=== PATIENT | male | born 1975 | race Caucasian/White ===

== ENCOUNTER 2020-09-07 08:52 | Emergency (ER) | payer OTHER, SELFPAY ==
[2020-09-07] VITALS (9 sets, daily range): BP systolic 118–158; BP diastolic 58–85; PULSE 51–80; RESP 16–24; TEMP 36.1–36.7; O2SAT 96–100; BMI 32.0
--- NOTE | 2020-09-07 08:58 | RAD_ITS ---
STUDY: X-RAY - RIGHT RADIUS AND ULNA REASON FOR EXAM: Right forearm pain, right forearm injury. TECHNIQUE: 2 view(s) of the forearm. COMPARISON: None. FINDINGS: There is no demonstrated soft tissue swelling. Normal visualized radius. Normal visualized ulna. RAD/Forearm 2 Views IMPRESSION: Normal x-ray examination of the right radius and ulna. Electronically Signed: Gregg Guzman MD at 10:15 EDT Tel , Service support ,
--- NOTE | 2020-09-07 08:58 | RAD_ITS ---
STUDY: X-RAY - RIGHT ELBOW REASON FOR EXAM: Male, 45 years old. Injury/Pain , open wound of posterior elbow TECHNIQUE: 3 view(s) of the elbow. COMPARISON: None. FINDINGS: Normal visualized humerus, radius and ulna. Normal radiocapitellar and ulnotrochlear articulations. Soft tissue injury of the posterior distal upper arm/elbow. RAD/Elbow min 3 Views IMPRESSION: Soft tissue injury posteriorly without demonstrated fracture. Electronically Signed: Misael Joyce MD ([facility]) at 9:53 EDT , Service support ,
--- NOTE | 2020-09-07 08:58 | RAD_ITS ---
STUDY: X-RAY - RIGHT HAND REASON FOR EXAM: Right hand pain, limited range of motion in fingers, right hand injury. TECHNIQUE: 3 view(s) of the hand. COMPARISON: None. FINDINGS: Normal radiocarpal articulation. Normal distal radioulnar joint. Normal visualized carpal bones. Normal carpal articulations Normal carpometacarpal articulation of the thumb. Normal second through fifth carpometacarpal joints. Normal metacarpi. Normal metacarpophalangeal joint of the thumb. Normal interphalangeal joint of the thumb. Normal proximal and distal phalanges of the thumb. Normal metacarpophalangeal joints of the second through fifth fingers. Normal proximal and distal interphalangeal joints of the second through fifth fingers. There is a small exostosis of the ulnar aspect of the distal diaphysis of the fifth proximal phalanx. Otherwise, unremarkable phalanges of the second through fifth fingers. The soft tissue structures are unremarkable. RAD/Hand Min 3 Views IMPRESSION: Small exostosis of the fifth proximal phalanx. No demonstrated fracture. Electronically Signed: Gregg Guzman MD at 10:10 EDT Tel , Service support ,
--- NOTE | 2020-09-07 08:59 | EDS_ITS ---
HPI History of Present Illness Chief Complaint: Upper Extremity Injury Informant: patient Occured/Mechanism Mechanism/Context: Yes work related Narrative Narrative: Patient is a 45-year-old male who denies any past medical history presenting with injury to his right elbow and hand. Patient was attempting to use a hammer to get grease off of the conveyor belt at work when the hammer got sucked up in his hand along with it into the conveyor belt. He states his hand and arm was stuck between a conveyor belt and the roller mechanism. He complained of significant pain at his elbow as well as tingling in his first 3 fingers. Patient believes his last tetanus shot was 4 to 5 years ago. He complained of significant associated pain. He denies any other injuries or complaints at this time. Patient is right-hand dominant. Tetanus Immunization: <5 years [facility] Home Medications NK 09/07/20 [History Last Taken Unknown] Allergy/AdvReac Type Severity Reaction Status Date / Time No Known Allergies Allergy Verified 09/07/20 09:08 Social History Smoking Status: Former smoker [facility] ED Constitutional Constitutional ED: Reports frequent falls; Denies fever(s) Eyes Eyes: Denies change in vision or eye pain ENT ENT ED: Denies dental pain, mouth lesions or nasal trauma Cardiovascular Cardiovascular: Denies chest pain or syncope Respiratory/Chest Respiratory/Chest: Denies cough or dyspnea Gastrointestinal Gastrointestinal: Denies abdominal pain or nausea Genitourinary Genitourinary ED: Denies dysuria or hematuria Musculoskeletal Musculoskeletal: Reports other Details: right elbow and hand pain ; Denies back pain Integumentary Reports other Details: wound to right elbow, abrasions to right forearm and fingers Neurologic Neurologic: Denies headache(s), paresthesias or weakness Psychiatric Psychiatric: Denies anxiety or depression Hematologic/Lymphatic Hematologic/Lymphatic: Denies easy bleeding or easy bruising EXAM Physical Exam Const Vital Signs: 09/07/20 08:53 Temperature 97.0 F L Temperature Source Temporal Pulse Rate 55 L Respiratory Rate 24 H Blood Pressure 148/85 H Blood Pressure Mean 106 Pulse Ox 99 Oxygen Delivery Method Room Air Positive well nourished and well developed General Appearance ED: well developed HEENT Reports head/scalp atraumatic and hearing grossly normal bilaterally normocephalic and atraumatic; Negative for Motta's sign or raccoon eyes Nose: no nasal discharge Mouth ED: Yes other Mouth: other Other Details: No Malocclusion Eyes PERRL Neck full ROM Thyroid: Negative for tender Chest Wall inspection of chest normal and palpation of chest normal Chest: Negative for crepitus Resp normal respiratory effort, no retractions and clear to auscultation bilaterally Cardio regular rate and regular rhythm Jugular Venous Distention: Negative for JVD Peripheral Pulses: pulses 2+ throughout GI non-tender and non-distended Palpation: soft; Negative for guarding or rebound tenderness present Extremity Extremity Narrative: Swelling and tenderness with slight deformity of the right elbow. Tenderness is mostly over the radial head. There is swelling of that area that is very tender to palpation. Patient has significant pain with pronation as well as flexion and extension. Normal range of motion of right wrist. Normal right shoulder. Patient has normal range of motion and movement with intrinsic and extrinsic hand muscles. Neuro oriented x3 and moves all extremities Neuro Narrative: Subjective paresthesias of the right first through third fingers diffusely. Sensation is intact with light touch however. Sensorium / Orientation: alert Motor Exam: strength 5/5 throughout Psych mental status grossly normal Skin Skin Narrative: 3 cm x 4 cm open wound of the right posterior distal forearm, no active bleeding. The wound edges a very frayed. There appears to be friction hayes along the dorsal aspect of the forearm as well as abrasions over the second and third right fingers. No active bleeding. Skin is quite dirty and contaminated with grease. MDM MDM MDM Narrative Medical decision making narrative: Patient valuated for crush injury to his right forearm. He is right-hand dominant. Patient has an avulsion injury through the subcu tissue of the posterior right distal arm with associated friction burn of the right forearm. Patient does not show any acute fracture on x-ray. No posterior fat pad sign. Significant pain tenderness of the proximal forearm compartment on the radial aspect. He has paresthesias of the first through third fingers. I am concerned that he could develop compartment syndrome and needs evaluation by orthopedics. Patient requires multiple doses of pain medication in the ER for pain control. Wound is clean and irrigated. Wet-to-dry dressing is applied. Spoke with orthopedic on-call here who states that we do not have the capabilities to manage compartment syndrome as we do not have the correct instruments and they recommend transfer. Discussed with [facility] who also discussed with Dr. Lua, Ortho trauma and patient will be evaluated there. Patient will go by private vehicle with his . He is instructed to go straight to the emergency room. He is counseled on the concerns of a missed compartment syndrome and associated risk. Patient is given oral oxycodone prior to transfer. On discharge patient has significant tenderness of the proximal forearm with asymmetric edema however he is still neuro vastly intact. Discharge Plan Triage Chief Complaint: Upper Extremity Injury ED Provider: Mary Jo Vera Dx/Rx/DC Orders Prescriptions: No Action NK RF: 0 Primary Care Provider: Care Physician,No Primary
[2020-09-07] MEDS: fentaNYL 100 MCG/2 ML Ampul 50 MCG IM (09:04)
--- NOTE | 2020-09-07 09:23 | ED.RN ---
THIS NURSE SPOKE WITH CHANELL AT [facility] [phone], NO DRUG TESTING REQUIRED
[2020-09-07] MEDS: Ondansetron 4 MG/2 ML Vial IV (09:40)
[2020-09-07] MEDS: HYDROmorphone 0.5 MG/0.5 ML SYRINGE IV ×2 (09:41→11:31)
[2020-09-07] MEDS: Lidocaine 1% /Epi 1:100 (20ml) 20 ML Vial INFILT (12:32)
[2020-09-07] MEDS: oxyCODONE 5 MG Tablet PO (14:37)
--- NOTE | 2020-09-07 15:09 | ED.RN ---
CONVERSATION WITH DR HOLDEN. DECISION MADE TO LEAVE IV IN. AREA WRAPPED. WET TO DRY DRESSING PLACED TO RT ELBOW AREA. SLING IN PLACE
== END 2020-09-07 15:39 | disposition short-term general hospital (02) ==
PROVIDERS: Emergency Provider Emergency Medicine
DX: S69.91XA Unspecified injury of right wrist, hand and finger(s), initial encounter (principal); S59.901A Unspecified injury of right elbow, initial encounter; Z87.891 Personal history of nicotine dependence; X58.XXXA Exposure to other specified factors, initial encounter
CPT/HCPCS: 73080; 73090; 73130; 96372; 96374; 96375; 96376; 99285; A4216; J2405

== ENCOUNTER → 2024-10-28 | Outpatient (CLI) | payer OTHER, SELFPAY | END | disposition home or self-care (01) | LOC: LABSPEC 17:32 | PROVIDERS: Referring Provider Otolaryngology; Visit Provider Otolaryngology | DX: J32.9 Chronic sinusitis, unspecified (principal) | CPT/HCPCS: 87070; 87205 ==

== ENCOUNTER → 2024-11-14 | Outpatient (CLI) | payer OTHER, SELFPAY ==
--- NOTE | 2024-11-14 06:23 | CT_ITS ---
PROCEDURE: SINUS/FACIAL BONE 11/14/2024 REASON FOR EXAM: OTHER CHRONIC SINUSITIS TECHNIQUE: SINUS/FACIAL BONE Coronal and Sagittal reconstruction series were provided. One or more dose reduction techniques were used (e.g., Automated exposure control, adjustment of the mA and/or kV according to patient size, use of iterative reconstruction technique). RADIATION DOSE SUMMARY: CTDlvol: 33.06 mGy DLP: 817.32 mGycm COMPARISON: None FINDINGS: Frontal: Opacification of the left frontal sinus. Ethmoid: Opacification of the ethmoid sinuses more pronounced on the left side with the resorption of the bony septations. Sphenoid: Minimal mucosal thickening along the medial wall of the right sphenoid sinus. Maxillary: Opacification of the left maxillary sinus and mucosal thickening of the right maxillary sinus. Turbinates: Soft tissue density within the nasal fossa more pronounced on the left side. There is obliteration of the left ostiomeatal complex due to soft tissue proliferation. Nasal polyposis should be ruled out. Nasal Septum: Left deviation. Mastoids/Middle Ears: Clear Pansinusitis. Findings suggestive of nasal polyposis. Reading Location: [id number]
--- OUTSIDE RECORDS SUMMARY | 2024-11-14 06:25 | XMS RPT_ITS | CCD ---
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 Name Role Phone JEANETH FRANCISCO () Unavailable Unav ailable JEANETH FRANCISCO) Unavailable Unav ailable JEANETH FRANCISCO) Unavailable Unav ailable JEANETH FRANCISCO) Unavailable Unav ailable KORPI Admitting Unavailable KORPI Attending Unavailable KORPI Primary Care Unavailable CINDA MIDDLETON SENIOR GL ACCOUNTANT Attending Unavailable CINDA MIDDLETON SENIOR GL ACCOUNTANT Primary Care Unavailable CINDA MIDDLETON SENIOR GL ACCOUNTANT Admitting Unavailable Care Physician, No Primary Primary Care Provider Unavailable Care Physician, No Primary Referring Provider Un available Mal Lee Attending Provider [phone] Care Physician, No Primary Referring Unava ilable Care Physician, No Primary Primary Care Unava ilable Mal Lee Attending Unavailable Care Physician, No Primary Primary Care Unava ilable Jeaneth Love Referring Unavaildorinda e Jeaneth Love Attending Unavailabl e Care Physician, No Primary Primary Care Unava ilable Jeaneth Love Referring UnavailJeaneth Marin Attending Unavailabl e Medications Completed/Discontinued Medications Medication Drug Class(es) Dates Sig (Normalized) Sig (Original) azithromycin 250 mg oral tablet (1 source) Macrolide Antimicrobial Start: 08-20-2023 End: 08-10-2024 Azithromycin 250 mg tablet Discontinued 0 PO .COMPLEX August 20, 2023 12:00am August 10, 2024 3:16pm For 250 mg dose pack: take 500 mg today (day 1), then 250 mg for 4 days (days 2-5) PO Problems Active Problems Problem Classification Problem Date Documented Date Episodic/Chronic Administrative/social admission (1 source) Administrative reason for encounter; Translations: [Encounter for other administrative examinations] 04-01-2023 Episodic Cardiac dysrhythmias (1 source) Palpitations; Translations: [Palpitations] Onset: 02-23-2018 Episodic Crushing injury or internal injury (1 source) Crushing injury of right forearm, subsequent encounter; Translations: [Crushing injury of right forearm, subsequent encounter] Onset: 10-26-2020 Episodic Genitourinary symptoms and ill-defined conditions (1 source) Proteinuria, unspecified; Translations: [Proteinuria, unspecified] Onset: 03-05-2018 Episodic Open wounds of extremities (3 sources) Laceration without foreign body of right upper arm, subsequent encounter; Translations: [Laceration without foreign body of right upper arm, subsequent encounter] Onset: 10-26-2020 Episodic Open wounds of head; neck; and trunk (1 source) Laceration of chin; Translations: [Laceration without foreign body of other part of head, initial encounter] 08-20-2023 Episodic Other nutritional; endocrine; and metabolic disorders (1 source) Obesity, unspecified; Translations: [Obesity, unspecified] Onset: 12-18-2020 Chronic Other screening for suspected conditions (not mental disorders or infectious disease) (1 source) Encounter for screening for lipoid disorders; Translations: [Encounter for screening for lipoid disorders] Onset: 12-18-2020 Episodic Other upper respiratory infections (1 source) Other chronic sinusitis; Translations: [Other chronic sinusitis] Onset: 10-28-2024 Chronic Superficial injury; contusion (3 sources) Contusion of chest; Translations: [Contusion of unspecified front wall of thorax, initial encounter] 08-20-2023 Episodic Past or Other Problems Problem Classification Problem Date Documented Da te Episodic/Chronic Immunizations and screening for infectious disease (1 source) Encounter for immunization; Translations: [Encounter for immunization] Onset: 08-10-2024 Episodic Results Test Name Value Interpretation Reference Range Facility Gram Stainon 10-29-2024 GS Gram Stain No organisms seen No Epithelial cells Normal [facility] Comment on above: Performed By: #### M 100.2000, M100.2500 #### [facility] [address] [place], [address] Nasopharyngeal Cultureon NAC No growth in 48 hours. Normal [facility] Comment on above: Performed By: #### M 100.2000, M100.2500 #### [facility] [address] [place], [address] Office Visit Reporton 2024 Office Visit Report [facility] [address] [place] [address] OFFICE VISIT Date of Service: 08/10/24 MR#: [id number] Acct: [id number] Patient: SHIRLEY CONTI Rep #: [id number] 04 : 1975 Provider: HERMAN Han Age/Sex: 49/M Location: [facility] Status: Signed Intake Vital Signs 08/20/23 09:55 08/10/24 15:15 Height 1.83 m 1.83 m Weight: 88.451 kg 94.801 kg BMI 26.4 28.3 BP 141/84 H 122/83 H Blood Pressure Location Rt radial Lt brachial Position Sitting Sitting Respiration 18 Pulse 75 70 Pulse Source Monitor Monitor Temp 98.4 F 98.5 F Temp Source Temporal Temporal Pulse Oximetry (%) 98 97 Oxygen Delivery Method room air Intake Visit Reasons: RT ELBOW LAC Chief Complaint: rght elbow lac Allergies No Known Allergies Allergy (Verified 08/10/24 15:16) PFSH Medical History (Updated 08/11/24 @ 06:33 by HERMAN Joshi) Chest wall contusion Facial abrasion Facial contusion Chin laceration Surgical History (Updated 08/20/23 @ 10:02 by Camille Cevallos) History of surgery on arm Family History (Updated 08/20/23 @ 09:59 by Camille Cevallos) Father Heart disease Mother Diabetes Social History (Updated 08/20/23 @ 10:00 by Camille Cevallos) current occupational status: employed Smoking Status: Former smoker alcohol intake: current alcohol intake frequency: holidays/special occasions only substance use type: does not use HPI HPI Chief Complaint: rght elbow lac Details: SHIRLEY CONTI, is a 49 M who presents to the office today for right elbow laceration. He slipped and fell striking his arm against a metal platform at work. He has a 1.5 inch straight laceration to the forearm just distal to the elbow. He controlled the bleeding with pressure and butterfly bandages. Tetanus shot was last about 5 years ago. ROS Const Constitutional: No chills, fatigue or fever(s) Musc Musculoskeletal: No deformity, joint swelling, limited range of motion, numbness, stiffness or tingling Skin Skin: Positive for wounds; No redness or rash Neuro Neurology: No numbness or tingling Endo Endocrine: No fatigue Exam Const General: cooperative, healthy appearing, comfortable, no acute distress, well developed and well groomed Nutritional Appearance: average body habitus and well nourished Orientation: alert, awake and oriented x3 HENMT Head: normocephalic and atraumatic Resp Effort Inspection: normal respiratory effort, able to speak in complete sentences, symmetric chest movement and no cough Skin Other: right forearm 1.5 inch laceration, straight, shallow, oozing dark red blood. no debris seen. Immunizations Adacel(Tdap Adolesn/Adult)(PF) 2 Lf-(2.5-5-3-5)-5 Lf/0.5 mL IM syringe Performing Provider: HERMAN Joshi Performing Location: [facility] Administered by: Kaye Clark on 08/10/24 15:35 Dose Route Admin Location Dispensed Lot Number Expiration Date [place] Man ufacturer 0.5 mL IM Left Deltoid 0.5 mL [id number] 06/28/25 52787-528-14 SANO[employer]-P ASTEUR VIS Given Date VIS Provided VIS Publication Date 08/10/24 Single Vaccine 24 Eligibility Eligibility Date Funding Source Not Applicable Coding Level of Care Code Off vis,est,level 3 Diagnoses Laceration of right forearm S51.811A Assessment and Plan Assessment and Plan (1) Laceration of right forearm: Status: Acute Plan: Cleaned with saline and hibiclens, alcohol swab. anaesthesized with approx 4 cc 2% lidocaine. closed with 4x simple interrupted suture with 3-0 ethilon. dressed with bacitracin and gauze, coban. continue during the day keep covered when working. off at night. sutures out in 8 days. tdap updated discussed signs of infection, call if these develop no chronic medical issues/medication use Orders: Orders Tdap Immunization 08/10/24 Z23 - Encounter for immunization 08/11/24 0636 Date Mal Pee Barragan Signature: Date (if applicable) CC: Normal [facility] HGB A1C [CCL]on 09-29-2020 Glucose [Mass/Vol] 114 mg/dL Normal [facility] Comment on above: Result Comment: eAG: (Estimated average glucose) is a calculated value from HgbA1c and is players club representative of the average blood glucose level in the last 2-3 month period. [facility] [address] [place] [address] Mack Terry III, M.D. [id number] Performed By: #### 2 27311 #### [place] [id number] HbA1c (Bld) [Mass fraction] 5.6 % Normal 4.3-5.6 [facility] Comment on above: Result Comment: Amer ican Diabetes Association guidelines indicate that patients with HgbA1c in the range 5.7-6.4% are at increased risk for development of diabetes, and intervention by lifestyle modification may be beneficial. HgbA1c greater or equal to 6.5% is considered diagnostic of diabetes. Performed By: #### 2 35779 #### [place] [id number] Hemoglobin A1con 09-29-2020 Glucose [Mass/Vol] 114 mg/dL Normal [facility] Comment on above: Performed By: #### H BA1C #### [facility] [address] [place] [address] HbA1c (Bld) [Mass fraction] 5.6 % Normal 4.3-5.6 [facility] Comment on above: Performed By: #### H BA1C #### [facility] Routine Lab [address] [place], [place] [address] CBC + DIFFon 09-28-2020 Baso # 0.00 x10EE3/UL Normal 0.00 - 0.10 [facility] Comment on above: Performed By: #### 2 39247 #### [facility],[address] [place] [address] Basophils/100 WBC (Bld) 0.7 % Normal 0.0 - 2.0 [facility] Comment on above: Performed By: #### 2 58986 #### [facility],[address] [place] [address] CBC + DIFF Normal [facility] Comment on above: Result Comment: CBC- COMPLETE BLOOD COUNT Performed By: #### 2 23590 #### [facility],[address] [place] [address] EO # 0.10 x10EE3/UL Normal 0.00 - 0.50 [facility] Comment on above: Performed By: #### 2 49796 #### [facility],[address] [place] [address] Eosinophils/100 WBC (Bld) 2.0 % Normal 0.0 - 7.0 [facility] Comment on above: Performed By: #### 2 46566 #### [facility],[address] [place] [address] Erythrocyte distribution width (RBC) [Ratio] 13.8 % Normal 12.0 - 15.6 [facility] Comment on above: Performed By: #### 2 93811 #### [facility],[address] [place] [address] 35584 Hematocrit (Bld) [Volume fraction] 42.9 % Normal 40.0 - 52.0 [facility] Comment on above: Performed By: #### 2 16134 #### [facility],[address] [place] [address] 16848 Hemoglobin (Bld) [Mass/Vol] 14.2 g/dL Normal 13.0 - 17.5 [facility] Comment on above: Performed By: #### 2 36499 #### [facility],[address] [place] [address] Lymph # 1.50 x10EE3/UL Normal 0.80 - 2.80 [facility] Comment on above: Performed By: #### 2 65224 #### [facility],[address] [place] [address] Lymphocytes/100 WBC (Bld) 22.3 % Normal 20.0 - 45.0 [facility] Comment on above: Performed By: #### 2 78858 #### [facility],[address] [place] [address] MANUAL DIFF N/A Normal [facility] Comment on above: Performed By: #### 2 93329 #### [facility],[address] [place] [address] MCH (RBC) [Entitic mass] 28 pg Normal 27 - 33 [facility] Comment on above: Performed By: #### 2 23525 #### [facility],[address] [place] [address] MCHC 33 X10 3 Normal 32 - 36 [facility] Comment on above: Performed By: #### 2 92484 #### [facility],[address] [place] [address] MCV (RBC) [Entitic vol] 83 fL Normal 81 - 98 [facility] Comment on above: Performed By: #### 2 72620 #### [facility],[address] [place], [place] [address] [place]der # 0.60 x10EE3/UL Normal 0.20 - 1.00 [facility] Comment on above: Performed By: #### 2 21129 #### [facility],[address] [place] [address] MONOS % 9.2 % Normal 0.0 - 10.0 [facility] Comment on above: Performed By: #### 2 29968 #### [facility],[address] [place] [address] Morphology Florencio (Bld) [Interp] N/A Normal [facility] Comment on above: Result Comment: {CD] Performed By: #### 2 80836 #### [facility],[address] [place] [address]1189 Neut # 4.50 x10EE3/UL Normal 1.50 - 7.10 [facility] Comment on above: Performed By: #### 2 61527 #### [place] [address] Neutrophils/100 WBC (Bld) 65.8 % Normal 46.0 - 76.0 [facility] Comment on above: Performed By: #### 2 93318 #### [facility],[address] [place], [place] [address] PLATELET 335 x10EE3/UL Normal 150 - 450 [facility] Comment on above: Performed By: #### 2 33250 #### [facility],[address] [place] [address] Platelet mean volume (Bld) [Entitic vol] 7.4 fL Normal 6.4 - 10.5 [facility] Comment on above: Result Comment: AUTO MATED DIFFERENTIAL Performed By: #### 2 17143 #### [facility],[address] [place] [address] 78225 RBC 5.15 x 10EE6/UL Normal 4.50 - 6.00 [facility] Comment on above: Performed By: #### 2 90338 #### [facility],[address] [place] [address]990 WBC 6.8 x 10EE3/UL Normal 4.5 - 10.8 [facility] Comment on above: Performed By: #### 2 61570 #### [facility],[address] [place] [address] CMP with eGFRon 09-28-2020 AGE 45 years Normal [facility] Comment on above: Performed By: #### 2 73052 #### [facility],[address] [place] [address] 63788 Albumin [Mass/Vol] 4.1 g/dL Normal 3.4 - 5.0 [facility] Comment on above: Performed By: #### 2 37712 #### [facility],[address] [place] [address] 62851 Albumin/Globulin [Mass ratio] 1.3 {ratio} Normal 0.9 - 1.6 [facility] Comment on above: Performed By: #### 2 12554 #### [facility],[address] [place] [address]206 ALK PHOS 88 U/L Normal 46 - 116 [facility] Comment on above: Performed By: #### 2 26812 #### [facility],[address] [place] [address] 58857 ALT [Catalytic activity/Vol] 23 U/L Normal 16 - 63 [facility] Comment on above: Performed By: #### 2 23114 #### [facility],[address] [place] [address] 92270 Anion gap [Moles/Vol] 12 mmol/L Normal 10 - 20 [facility] Comment on above: Performed By: #### 2 24512 #### [facility],[address] [place] [address] 56056 AST [Catalytic activity/Vol] 7 U/L Low 15 - 37 [facility] Comment on above: Performed By: #### 2 03543 #### [facility],[address] [place] [address] 45334 B/C RATIO 25 ratio Normal 0 - 30 [facility] Comment on above: Performed By: #### 2 20537 #### [facility],[address] [place] [address] 73955 Bilirubin [Mass/Vol] 0.6 mg/dL Normal 0.2 - 1.0 [facility] Comment on above: Performed By: #### 2 73561 #### [facility],[address] [place] [address] Calcium [Mass/Vol] 9.8 mg/dL Normal 8.5 - 10.1 [facility] Comment on above: Performed By: #### 2 40025 #### [facility],[address] [place] [address] Chloride [Moles/Vol] 104 mmol/L Normal 98 - 107 [facility] Comment on above: Performed By: #### 2 77382 #### [facility],[address] [place] [address] CMP with eGFR Normal [facility] Comment on above: Result Comment: COMP REHENSIVE METABOLIC PANEL Performed By: #### 2 10365 #### [facility],[address] [place] [address] CO2 [Moles/Vol] 30.1 mmol/L Normal 21.0 - 32.0 [facility] Comment on above: Performed By: #### 2 61585 #### [facility],[address] [place] [address] Creatinine [Mass/Vol] 0.91 mg/dL Normal 0.70 - 1.30 [facility] Comment on above: Performed By: #### 2 64151 #### [facility],[address] [place], [place] [address] GFR/1.73 sq M.predicted among non-blacks MDRD (S/P/Bld) [Vol rate/Area] mL/min/{1.73_m2} Normal 60 - 999 [facility] Comment on above: Performed By: #### 2 02734 #### [facility],[address] [place] [address] Result Comment: ACCO RDING TO THE NATIONAL KIDNEY DISEASE EDUCATION PROGRAM(NKDE), A NORMAL eGFR IS A VALUE GREATER THAN OR EQUAL TO 60 ML/MIN/1.73 SQ METERS. CHRONIC KIDNEY DISEASE: <60mL/MIN/1.73 SQ METERS KIDNEY FAILURE: <15mL/MIN/1.73 SQ METERS THIS TEST SHOULD ONLY BE USED FOR PATIENTS 18 YEARS OF AGE AND OLDER. Globulin (S) [Mass/Vol] 3.2 g/dL Normal 1.5 - 3.8 [facility] Comment on above: Performed By: #### 2 26564 #### [facility],[address] [place] [address]381 Glucose [Mass/Vol] 88 mg/dL Normal 74 - 106 [facility] Comment on above: Performed By: #### 2 42017 #### [facility],[address] [place] [address] 26952 Potassium [Moles/Vol] 4.2 mmol/L Normal 3.5 - 5.1 [facility] Comment on above: Performed By: #### 2 14758 #### [facility],[address] [place] [address] 97663 Protein [Mass/Vol] 7.3 g/dL Normal 6.4 - 8.2 [facility] Comment on above: Performed By: #### 2 39894 #### [facility],[address] [place] [address] 55026 Sodium [Moles/Vol] 142 mmol/L Normal 136 - 145 [facility] Comment on above: Performed By: #### 2 08153 #### [facility],[address] [place] [address] 07592 Urea nitrogen [Mass/Vol] 23 mg/dL High 7 - 18 [facility] Comment on above: Performed By: #### 2 92183 #### [facility],[address] [place] [address]121 LIPID PROFILEon 09-28-2020 Cholesterol [Mass/Vol] 230 mg/dL Normal 0 - 240 [facility] Comment on above: Performed By: #### 2 04947 #### [facility],[address] [place] [address] 90662 Cholesterol in HDL [Mass/Vol] 66 mg/dL High 40 - 60 [facility] Comment on above: Performed By: #### 2 16177 #### [facility],[address] [place] [address] 01132 Cholesterol in LDL [Mass/Vol] 156 mg/dL High 0 - 129 [facility] Comment on above: Performed By: #### 2 80556 #### [facility],[address] [place] [address] 76574 Cholesterol.total/ Cholesterol in HDL [Mass ratio] 3.5 {ratio} Normal 0.0 - 5.0 [facility] Comment on above: Performed By: #### 2 57613 #### [facility],[address] [place] [address] 62970 Lipid 1996 panel Normal [facility] Comment on above: Result Comment: LIPI D PROFILE Performed By: #### 2 95099 #### [facility],[address] [place] [address] 46020 Triglyceride [Mass/Vol] 40 mg/dL Normal 0 - 150 [facility] Comment on above: Performed By: #### 2 91277 #### [facility],[address] [place] [address] 01554 .Auto Diffon 09-09-2020 Basophil, Absolute 0.00 10 3/mcL Normal 0.00-0.27 [facility] ([place]) Comment on above: Performed By: #### G FR, DATIGG, BMP, ABSGEL, ABOGEL #### [address] [address] Basophils/100 WBC (Bld) 0.2 % Normal 0.0-2.5 [facility] ([place]) Comment on above: Performed By: #### G FR, DATIGG, BMP, ABSGEL, ABOGEL #### [address] [address] Eosinophil, Absolute 0.00 10 3/mcL Normal 0.00-0.65 [facility] ([place]) Comment on above: Performed By: #### G FR, DATIGG, BMP, ABSGEL, ABOGEL #### [address] [address] Eosinophils/100 WBC (Bld) 0.2 % Normal 0.0-6.0 [facility] ([place]) Comment on above: Performed By: #### G FR, DATIGG, BMP, ABSGEL, ABOGEL #### [address] [address] Lymphocyte, Absolute 1.30 10 3/mcL Normal 0.90-4.32 [facility] ([place]) Comment on above: Performed By: #### G FR, DATIGG, BMP, ABSGEL, ABOGEL #### [address] [address] Lymphocytes/100 WBC (Bld) 14.3 % Low 20.0-40.0 [facility] ([place]) Comment on above: Performed By: #### G FR, DATIGG, BMP, ABSGEL, ABOGEL #### [address] [address] Monocyte, Absolute 1.10 10 3/mcL Normal 0.09-1.40 [facility] ([place]) Comment on above: Performed By: #### G FR, DATIGG, BMP, ABSGEL, ABOGEL #### [address] [address] Monocytes/100 WBC (Bld) 11.8 % Normal 2.0-13.0 [facility] ([place]) Comment on above: Performed By: #### G FR, DATIGG, BMP, ABSGEL, ABOGEL #### [address] [address] Neutrophils/100 WBC (Bld) 73.5 % Normal 50.0-75.0 [facility] ([place]) Comment on above: Performed By: #### G FR, DATIGG, BMP, ABSGEL, ABOGEL #### [address] [address] .GFRon 09-09-2020 GFR >60 Normal [facility] ([place]) Comment on above: Result Comment: GFR Population mean for , Non- Americans Ages 20-29 = 116 mL/min/1.73 sq.m. Ages 30-39 = 107 mL/min/1.73 sq.m. Ages 40-49 = 99 mL/min/1.73 sq.m. Ages 50-59 = 93 mL/min/1.73 sq.m. Ages 60-69 = 85 mL/min/1.73 sq.m. Ages 70+ = 75 mL/min/1.73 sq.m. Chronic Kidney Disease: Less than 60 mL/min/1.73 square meters End Stage Renal Disease: Less than 15 mL/min/1.73 square meters Performed By: #### G FR, DATIGG, BMP, ABSGEL, ABOGEL #### [address] [address] GFR Non- >60 Normal [facility] ([place]) Comment on above: Result Comment: GFR Population mean for , Non- Americans Ages 20-29 = 116 mL/min/1.73 sq.m. Ages 30-39 = 107 mL/min/1.73 sq.m. Ages 40-49 = 99 mL/min/1.73 sq.m. Ages 50-59 = 93 mL/min/1.73 sq.m. Ages 60-69 = 85 mL/min/1.73 sq.m. Ages 70+ = 75 mL/min/1.73 sq.m. Chronic Kidney Disease: Less than 60 mL/min/1.73 square meters End Stage Renal Disease: Less than 15 mL/min/1.73 square meters Performed By: #### G FR, DATIGG, BMP, ABSGEL, ABOGEL #### [address] [address] .NEUABSon 09-09-2020 Neutrophil, Absolute 6.60 10 3/mcL Normal 2.25-8.10 [facility] ([place]) Comment on above: Performed By: #### G FR, DATIGG, BMP, ABSGEL, ABOGEL #### [address] [address] BMPon 09-09-2020 BUN/Creatinine Ratio 13.5 ratio Normal 10.0-22.0 [facility] ([place]) Comment on above: Performed By: #### G FR, DATIGG, BMP, ABSGEL, ABOGEL #### [address] [address] Calcium [Mass/Vol] 9.2 mg/dL Normal 8.7-10.4 [facility] ([place]) Comment on above: Result Comment: No te - New Reference Range in effect 19 Performed By: #### G FR, DATIGG, BMP, ABSGEL, ABOGEL #### [address] [address] Chloride [Moles/Vol] 109 mmol/L Normal 98-110 [facility] ([place]) Comment on above: Performed By: #### G FR, DATIGG, BMP, ABSGEL, ABOGEL #### [address] [address] CO2 [Moles/Vol] 26 mmol/L Normal 22-32 [facility] ([place]) Comment on above: Performed By: #### G FR, DATIGG, BMP, ABSGEL, ABOGEL #### [address] [address] Creatinine [Mass/Vol] 0.74 mg/dL Normal 0.60-1.40 [facility] ([place]) Comment on above: Performed By: #### G FR, DATIGG, BMP, ABSGEL, ABOGEL #### [address] [address] Electrolyte Balance 5.0 mEq/L Normal 4.0-15.0 [facility] ([place]) Comment on above: Performed By: #### G FR, DATIGG, BMP, ABSGEL, ABOGEL #### [address] [address] Glucose [Mass/Vol] 103 mg/dL Normal 70-110 [facility] ([place]) Comment on above: Performed By: #### G FR, DATIGG, BMP, ABSGEL, ABOGEL #### [address] [address] Potassium [Moles/Vol] 3.9 mmol/L Normal 3.5-5.0 [facility] ([place]) Comment on above: Performed By: #### G FR, DATIGG, BMP, ABSGEL, ABOGEL #### [place] [address] Sodium [Moles/Vol] 140 mmol/L Normal 136-145 [facility] ([place]) Comment on above: Performed By: #### G FR, DATIGG, BMP, ABSGEL, ABOGEL #### [place] [address] Urea nitrogen [Mass/Vol] 10.0 mg/dL Normal 8.0-22.0 [facility] ([place]) Comment on above: Performed By: #### G FR, DATIGG, BMP, ABSGEL, ABOGEL #### [address] [address] CBCon 09-09-2020 Erythrocyte distribution width (RBC) [Ratio] 14.4 % Normal 11.5-15.5 [facility] ([place]) Comment on above: Performed By: #### G FR, DATIGG, BMP, ABSGEL, ABOGEL #### [place] [address] Hematocrit (Bld) [Volume fraction] 41.2 % Normal 40.0-52.0 [facility] ([place]) Comment on above: Performed By: #### G FR, DATIGG, BMP, ABSGEL, ABOGEL #### [place] [id number] Hgb 13.7 G/dL Normal 13.0-17.5 [facility] ([place]) Comment on above: Performed By: #### G FR, DATIGG, BMP, ABSGEL, ABOGEL #### [place] [id number] MCH (RBC) [Entitic mass] 27.7 pg Normal 27.0-33.0 [facility] ([place]) Comment on above: Performed By: #### G FR, DATIGG, BMP, ABSGEL, ABOGEL #### [address] [address] MCHC 33.2 G/dL Normal 32.0-36.0 [facility] ([place]) Comment on above: Performed By: #### G FR, DATIGG, BMP, ABSGEL, ABOGEL #### [place] [address] MCV (RBC) [Entitic vol] 83.3 fL Normal 81.0-100.0 [facility] ([place]) Comment on above: Performed By: #### G FR, DATIGG, BMP, ABSGEL, ABOGEL #### [place] [address] Platelet 211 10 3/mcL Normal 150-450 [facility] ([place]) Comment on above: Performed By: #### G FR, DATIGG, BMP, ABSGEL, ABOGEL #### [place] [address] Platelet mean volume (Bld) [Entitic vol] 7.6 fL Normal 6.4-10.5 [facility] ([place]) Comment on above: Performed By: #### G FR, DATIGG, BMP, ABSGEL, ABOGEL #### [place] [address] RBC 4.95 10 6/mcL Normal 4.50-6.00 [facility] ([place]) Comment on above: Performed By: #### G FR, DATIGG, BMP, ABSGEL, ABOGEL #### [place] [address] WBC 8.90 10 3/mcL Normal 4.50-10.80 [facility] ([place]) Comment on above: Performed By: #### G FR, DATIGG, BMP, ABSGEL, ABOGEL #### [place] [address] CKon 09-09-2020 CK [Catalytic activity/Vol] 3242 U/L High 7-185 [facility] ([place]) Comment on above: Performed By: #### G FR, DATIGG, BMP, ABSGEL, ABOGEL #### [place] [address] .Auto Diffon 09-07-2020 Basophil, Absolute 0.00 10 3/mcL Normal 0.00-0.27 [facility] ([place]) Comment on above: Performed By: #### G FR, DATIGG, BMP, ABSGEL, ABOGEL #### [address] [address] Basophils/100 WBC (Bld) 0.2 % Normal 0.0-2.5 [facility] ([place]) Comment on above: Performed By: #### G FR, DATIGG, BMP, ABSGEL, ABOGEL #### [address] [address] Eosinophil, Absolute 0.00 10 3/mcL Normal 0.00-0.65 [facility] ([place]) Comment on above: Performed By: #### G FR, DATIGG, BMP, ABSGEL, ABOGEL #### [address] [address] Eosinophils/100 WBC (Bld) 0.0 % Normal 0.0-6.0 [facility] ([place]) Comment on above: Performed By: #### G FR, DATIGG, BMP, ABSGEL, ABOGEL #### [address] [address] Lymphocyte, Absolute 0.50 10 3/mcL Low 0.90-4.32 [facility] ([place]) Comment on above: Performed By: #### G FR, DATIGG, BMP, ABSGEL, ABOGEL #### [address] [address] Lymphocytes/100 WBC (Bld) 4.5 % Low 20.0-40.0 [facility] ([place]) Comment on above: Performed By: #### G FR, DATIGG, BMP, ABSGEL, ABOGEL #### [address] [address] Monocyte, Absolute 0.80 10 3/mcL Normal 0.09-1.40 [facility] ([place]) Comment on above: Performed By: #### G FR, DATIGG, BMP, ABSGEL, ABOGEL #### [address] [address] Monocytes/100 WBC (Bld) 6.9 % Normal 2.0-13.0 [facility] ([place]) Comment on above: Performed By: #### G FR, DATIGG, BMP, ABSGEL, ABOGEL #### [address] [address] Neutrophils/100 WBC (Bld) 88.4 % High 50.0-75.0 [facility] ([place]) Comment on above: Performed By: #### G FR, DATIGG, BMP, ABSGEL, ABOGEL #### [address] [address] Basophil, Absolute 0.00 10 3/mcL Normal 0.00-0.27 [facility] ([place]) Comment on above: Performed By: #### A DIFF, BMP, CBC, GFR, CK, ANEU #### [address] [address] Basophils/100 WBC (Bld) 0.3 % Normal 0.0-2.5 [facility] ([place]) Comment on above: Performed By: #### A DIFF, BMP, CBC, GFR, CK, ANEU #### [address] [address] Eosinophil, Absolute 0.00 10 3/mcL Normal 0.00-0.65 [facility] ([place]) Comment on above: Performed By: #### A DIFF, BMP, CBC, GFR, CK, ANEU #### [address] [address] Eosinophils/100 WBC (Bld) 0.0 % Normal 0.0-6.0 [facility] ([place]) Comment on above: Performed By: #### A DIFF, BMP, CBC, GFR, CK, ANEU #### [address] [address] Lymphocyte, Absolute 0.50 10 3/mcL Low 0.90-4.32 [facility] ([place]) Comment on above: Performed By: #### A DIFF, BMP, CBC, GFR, CK, ANEU #### [address] [address] Lymphocytes/100 WBC (Bld) 4.7 % Low 20.0-40.0 [facility] ([place]) Comment on above: Performed By: #### A DIFF, BMP, CBC, GFR, CK, ANEU #### [address] [address] Monocyte, Absolute 0.70 10 3/mcL Normal 0.09-1.40 [facility] ([place]) Comment on above: Performed By: #### A DIFF, BMP, CBC, GFR, CK, ANEU #### [address] [address] Monocytes/100 WBC (Bld) 6.3 % Normal 2.0-13.0 [facility] ([place]) Comment on above: Performed By: #### A DIFF, BMP, CBC, GFR, CK, ANEU #### [address] [address] Neutrophils/100 WBC (Bld) 88.7 % High 50.0-75.0 [facility] ([place]) Comment on above: Performed By: #### A DIFF, BMP, CBC, GFR, CK, ANEU #### [address] [address] .GFRon 09-07-2020 GFR >60 Normal [facility] ([place]) Comment on above: Result Comment: GFR Population mean for , Non- Americans Ages 20-29 = 116 mL/min/1.73 sq.m. Ages 30-39 = 107 mL/min/1.73 sq.m. Ages 40-49 = 99 mL/min/1.73 sq.m. Ages 50-59 = 93 mL/min/1.73 sq.m. Ages 60-69 = 85 mL/min/1.73 sq.m. Ages 70+ = 75 mL/min/1.73 sq.m. Chronic Kidney Disease: Less than 60 mL/min/1.73 square meters End Stage Renal Disease: Less than 15 mL/min/1.73 square meters Performed By: #### G FR, DATIGG, BMP, ABSGEL, ABOGEL #### [address] [address] GFR Non- >60 Normal [facility] ([place]) Comment on above: Result Comment: GFR Population mean for , Non- Americans Ages 20-29 = 116 mL/min/1.73 sq.m. Ages 30-39 = 107 mL/min/1.73 sq.m. Ages 40-49 = 99 mL/min/1.73 sq.m. Ages 50-59 = 93 mL/min/1.73 sq.m. Ages 60-69 = 85 mL/min/1.73 sq.m. Ages 70+ = 75 mL/min/1.73 sq.m. Chronic Kidney Disease: Less than 60 mL/min/1.73 square meters End Stage Renal Disease: Less than 15 mL/min/1.73 square meters Performed By: #### G FR, DATIGG, BMP, ABSGEL, ABOGEL #### [address] [address] GFR Non- >60 Normal [facility] ([place]) Comment on above: Result Comment: GFR Population mean for , Non- Americans Ages 20-29 = 116 mL/min/1.73 sq.m. Ages 30-39 = 107 mL/min/1.73 sq.m. Ages 40-49 = 99 mL/min/1.73 sq.m. Ages 50-59 = 93 mL/min/1.73 sq.m. Ages 60-69 = 85 mL/min/1.73 sq.m. Ages 70+ = 75 mL/min/1.73 sq.m. Chronic Kidney Disease: Less than 60 mL/min/1.73 square meters End Stage Renal Disease: Less than 15 mL/min/1.73 square meters Performed By: #### G FR, DATIGG, BMP, ABSGEL, ABOGEL #### [address] [address] GFR >60 Normal [facility] ([place]) Comment on above: Result Comment: GFR Population mean for , Non- Americans Ages 20-29 = 116 mL/min/1.73 sq.m. Ages 30-39 = 107 mL/min/1.73 sq.m. Ages 40-49 = 99 mL/min/1.73 sq.m. Ages 50-59 = 93 mL/min/1.73 sq.m. Ages 60-69 = 85 mL/min/1.73 sq.m. Ages 70+ = 75 mL/min/1.73 sq.m. Chronic Kidney Disease: Less than 60 mL/min/1.73 square meters End Stage Renal Disease: Less than 15 mL/min/1.73 square meters Performed By: #### G FR, DATIGG, BMP, ABSGEL, ABOGEL #### [address] [address] .NEUABSon 09-07-2020 Neutrophil, Absolute 9.90 10 3/mcL High 2.25-8.10 [facility] ([place]) Comment on above: Performed By: #### G FR, DATIGG, BMP, ABSGEL, ABOGEL #### [place] [address] Neutrophil, Absolute 9.90 10 3/mcL High 2.25-8.10 [facility] ([place]) Comment on above: Performed By: #### A DIFF, BMP, CBC, GFR, CK, ANEU #### [address] [address] ABO/Rh (Gel)on 09-07-2020 ABO/Rh Interp Negative Invalid Interpretation Code [facility] ([place]) Comment on above: Performed By: #### G FR, DATIGG, BMP, ABSGEL, ABOGEL #### [place] [address] ABS (Gel)on 09-07-2020 ABSC Interp (Gel) Negative Normal [facility] ([place]) Comment on above: Performed By: #### G FR, DATIGG, BMP, ABSGEL, ABOGEL #### [address] [address] BMPon 09-07-2020 BUN/Creatinine Ratio 24.7 ratio High 10.0-22.0 [facility] ([place]) Comment on above: Performed By: #### G FR, DATIGG, BMP, ABSGEL, ABOGEL #### [place] [id number] Calcium [Mass/Vol] 8.6 mg/dL Normal 8.4-10.1 [facility] ([place]) Comment on above: Result Comment: No te - New Reference Range in effect 19 Performed By: #### G FR, DATIGG, BMP, ABSGEL, ABOGEL #### [address] [address] Chloride [Moles/Vol] 102 mmol/L Normal 98-110 [facility] ([place]) Comment on above: Performed By: #### G FR, DATIGG, BMP, ABSGEL, ABOGEL #### [address] [address] CO2 [Moles/Vol] 28 mmol/L Normal 22-32 [facility] ([place]) Comment on above: Performed By: #### G FR, DATIGG, BMP, ABSGEL, ABOGEL #### [address] [address] Creatinine [Mass/Vol] 0.89 mg/dL Normal 0.60-1.40 [facility] ([place]) Comment on above: Performed By: #### G FR, DATIGG, BMP, ABSGEL, ABOGEL #### [place] [address] Electrolyte Balance 8.0 mEq/L Normal 4.0-15.0 [facility] ([place]) Comment on above: Performed By: #### G FR, DATIGG, BMP, ABSGEL, ABOGEL #### [address] [address] Glucose [Mass/Vol] 196 mg/dL High 70-110 [facility] ([place]) Comment on above: Performed By: #### G FR, DATIGG, BMP, ABSGEL, ABOGEL #### [address] [address] Potassium [Moles/Vol] 3.8 mmol/L Normal 3.5-5.0 [facility] ([place]) Comment on above: Performed By: #### G FR, DATIGG, BMP, ABSGEL, ABOGEL #### [place] [phone] Sodium [Moles/Vol] 138 mmol/L Normal 136-145 [facility] ([place]) Comment on above: Performed By: #### G FR, DATIGG, BMP, ABSGEL, ABOGEL #### [address] [address] Urea nitrogen [Mass/Vol] 22.0 mg/dL Normal 8.0-22.0 [facility] ([place]) Comment on above: Performed By: #### G FR, DATIGG, BMP, ABSGEL, ABOGEL #### [address] [address] BUN/Creatinine Ratio 25.8 ratio High 10.0-22.0 [facility] ([place]) Comment on above: Performed By: #### A DIFF, BMP, CBC, GFR, CK, ANEU #### [address] [address] Calcium [Mass/Vol] 8.6 mg/dL Normal 8.4-10.1 [facility] ([place]) Comment on above: Result Comment: No te - New Reference Range in effect 19 Performed By: #### A DIFF, BMP, CBC, GFR, CK, ANEU #### [address] [address] Chloride [Moles/Vol] 103 mmol/L Normal 98-110 [facility] ([place]) Comment on above: Performed By: #### A DIFF, BMP, CBC, GFR, CK, ANEU #### [address] [address] CO2 [Moles/Vol] 25 mmol/L Normal 22-32 [facility] ([place]) Comment on above: Performed By: #### A DIFF, BMP, CBC, GFR, CK, ANEU #### [address] [address] Creatinine [Mass/Vol] 0.89 mg/dL Normal 0.60-1.40 [facility] ([place]) Comment on above: Performed By: #### A DIFF, BMP, CBC, GFR, CK, ANEU #### [address] [address] Electrolyte Balance 9.0 mEq/L Normal 4.0-15.0 [facility] ([place]) Comment on above: Performed By: #### A DIFF, BMP, CBC, GFR, CK, ANEU #### [address] [address] Glucose [Mass/Vol] 207 mg/dL High 70-110 [facility] ([place]) Comment on above: Performed By: #### A DIFF, BMP, CBC, GFR, CK, ANEU #### [place] [phone] Potassium [Moles/Vol] 3.8 mmol/L Normal 3.5-5.0 [facility] ([place]) Comment on above: Performed By: #### A DIFF, BMP, CBC, GFR, CK, ANEU #### [place] [phone] Sodium [Moles/Vol] 137 mmol/L Normal 136-145 [facility] ([place]) Comment on above: Performed By: #### A DIFF, BMP, CBC, GFR, CK, ANEU #### [place] [phone] Urea nitrogen [Mass/Vol] 23.0 mg/dL High 8.0-22.0 [facility] ([place]) Comment on above: Performed By: #### A DIFF, BMP, CBC, GFR, CK, ANEU #### [address] [address] CBCon 09-07-2020 Erythrocyte distribution width (RBC) [Ratio] 14.1 % Normal 11.5-15.5 [facility] ([place]) Comment on above: Performed By: #### G FR, DATIGG, BMP, ABSGEL, ABOGEL #### [address] [address] Hematocrit (Bld) [Volume fraction] 41.5 % Normal 40.0-52.0 [facility] ([place]) Comment on above: Performed By: #### G FR, DATIGG, BMP, ABSGEL, ABOGEL #### [address] [address] Hgb 14.1 G/dL Normal 13.0-17.5 [facility] ([place]) Comment on above: Performed By: #### G FR, DATIGG, BMP, ABSGEL, ABOGEL #### [place] [address] MCH (RBC) [Entitic mass] 28.0 pg Normal 27.0-33.0 [facility] ([place]) Comment on above: Performed By: #### G FR, DATIGG, BMP, ABSGEL, ABOGEL #### [place] [address] MCHC 33.9 G/dL Normal 32.0-36.0 [facility] ([place]) Comment on above: Performed By: #### G FR, DATIGG, BMP, ABSGEL, ABOGEL #### [place] [address] MCV (RBC) [Entitic vol] 82.7 fL Normal 81.0-100.0 [facility] ([place]) Comment on above: Performed By: #### G FR, DATIGG, BMP, ABSGEL, ABOGEL #### [place] [address] Platelet 219 10 3/mcL Normal 150-450 [facility] ([place]) Comment on above: Performed By: #### G FR, DATIGG, BMP, ABSGEL, ABOGEL #### [place] [address] Platelet mean volume (Bld) [Entitic vol] 8.2 fL Normal 6.4-10.5 [facility] ([place]) Comment on above: Performed By: #### G FR, DATIGG, BMP, ABSGEL, ABOGEL #### [place] [address] RBC 5.02 10 6/mcL Normal 4.50-6.00 [facility] ([place]) Comment on above: Performed By: #### G FR, DATIGG, BMP, ABSGEL, ABOGEL #### [place] [address] WBC 11.20 10 3/mcL High 4.50-10.80 [facility] ([place]) Comment on above: Performed By: #### G FR, DATIGG, BMP, ABSGEL, ABOGEL #### [place] [address] Erythrocyte distribution width (RBC) [Ratio] 14.1 % Normal 11.5-15.5 [facility] ([place]) Comment on above: Performed By: #### A DIFF, BMP, CBC, GFR, CK, ANEU #### [place] [address] Hematocrit (Bld) [Volume fraction] 42.0 % Normal 40.0-52.0 [facility] ([place]) Comment on above: Performed By: #### A DIFF, BMP, CBC, GFR, CK, ANEU #### [place] [address] Hgb 14.0 G/dL Normal 13.0-17.5 [facility] ([place]) Comment on above: Performed By: #### A DIFF, BMP, CBC, GFR, CK, ANEU #### [place] [address] MCH (RBC) [Entitic mass] 27.7 pg Normal 27.0-33.0 [facility] ([place]) Comment on above: Performed By: #### A DIFF, BMP, CBC, GFR, CK, ANEU #### [place] [address] MCHC 33.4 G/dL Normal 32.0-36.0 [facility] ([place]) Comment on above: Performed By: #### A DIFF, BMP, CBC, GFR, CK, ANEU #### [place] [address] MCV (RBC) [Entitic vol] 82.7 fL Normal 81.0-100.0 [facility] ([place]) Comment on above: Performed By: #### A DIFF, BMP, CBC, GFR, CK, ANEU #### [place] [address] Platelet 224 10 3/mcL Normal 150-450 [facility] ([place]) Comment on above: Performed By: #### A DIFF, BMP, CBC, GFR, CK, ANEU #### [place] [address] Platelet mean volume (Bld) [Entitic vol] 7.8 fL Normal 6.4-10.5 [facility] ([place]) Comment on above: Performed By: #### A DIFF, BMP, CBC, GFR, CK, ANEU #### [place] [address] RBC 5.08 10 6/mcL Normal 4.50-6.00 [facility] ([place]) Comment on above: Performed By: #### A DIFF, BMP, CBC, GFR, CK, ANEU #### [place] [address] WBC 11.10 10 3/mcL High 4.50-10.80 [facility] ([place]) Comment on above: Performed By: #### A DIFF, BMP, CBC, GFR, CK, ANEU #### [place] [address] CKon 09-07-2020 CK [Catalytic activity/Vol] 1759 U/L High 7-185 [facility] ([place]) Comment on above: Performed By: #### A DIFF, BMP, CBC, GFR, CK, ANEU #### [place] [address] DATIGGon 09-07-2020 CHELLE IgG Interp (Gel) Negative Normal [facility] ([place]) Comment on above: Order Comment: Order ed by Discern Performed By: #### G FR, DATIGG, BMP, ABSGEL, ABOGEL #### [place] [address] XR CHEST 2 VIEWSon 1 XR CHEST 2 VIEWS ORIGINAL XR CHEST 2 VIEWS CLINICAL STATEMENT: Cough. COMPARISON: None FINDINGS: Cardiomediastinal silhouette is within normal limits. No focal consolidation, pleural effusion, or pneumothorax. No vascular congestion. No acute osseous abnormality. IMPRESSION: No acute radiographic findings. I have personally reviewed the images of this examination and agree with the resident's findings and interpretation. Interpreted By: Johanny Buckner MD Preliminary Report By: Steven Mcneil DO Electronically Signed By: Johanny Buckner MD Dictated Date: 09/07/2020 6:29:16 PM Prelim Date: 09/07/2020 6:29:54 PM Sign Date: 09/07/2020 6:44:19 PM Ordering Provider:Cinda Jo [facility] ([place]) PROGRESSon 03-05-2018 Protein mass conc HNO ID: [id number] thor: Cinda Humphreyervice: (none)Author Type: SonographerType: Progress NotesFiled: 03/05/2018 7:31 AMNote Text: Radiology Service Progress NotePATIENT NAME: Shirley ContiMRN: [id number] OF SERVICE: March 05, 2018TIME: 7:31 AMPATIENT IDENTITY VERIFICATION COMPLETED USING TWO (2) METHODS: Patientconfirmed name verbally and Date of .PATIENT GENDER DATA: MalePATIENT RELEVANT IMPLANT DATA REVIEWED: Not ApplicableRADIOLOGY DEPARTMENT: UltrasoundPERIPHERAL IV DATA: Not applicableSIGNED BY: CINDA GARRETT RDMS RVTDecember 2017 7:31 AM Normal [facility] US KIDNEY/BLADDERon 03-05-20 18 US KIDNEY/BLADDER * * *Final Report* * *DATE OF EXAM: Mar 05 2018 7:30AM U 1055 - US KIDNEY/BLADDER / REASON: Proteinuria, unspecified type * * * * Physician Interpretation * * * * EXAMINATION: RENAL ULTRASOUNDCLINICAL HISTORY:TECHNIQUE: Sonography of the kidneys and urinary bladder was performed. Images were obtained and stored in a permanent archive.MQ: [id number]: NoneRESULT:Right Kidney: -Renal length: 12.2 cm -Parenchyma: Normal parenchymal thickness. -Collecting system: No hydronephrosis. -Calculus: No echogenic, shadowing calculus. -Lesion: None.Left Kidney: -Renal length: 12.0 cm -Parenchyma: Normal parenchymal thickness. -Collecting system: No hydronephrosis. -Calculus: No echogenic, shadowing calculus. -Lesion: None.Bladder: No significant abnormality is demonstrated although the bladder is not well distended; prevoid urinary bladder volume of 76 cc.Increased hepatic echogenicity is suggestive of hepatic steatosis.IMPRESSION:NO HYDRONEPHROSIS.HEPATIC STEATOSIS.Feller Buncher Operator: SOLITARIO Transcribe Date/Time: Mar 05 2018 2:16PDictated by : ROMAIN ONEAL MDThis examination was interpreted and the report reviewed and electronically signed by: ROMAIN ONEAL MD on Mar 06 2018 8:32AM [id number] Normal [facility] CBCon 02-23-2018 Absolute nRBC <0.01 Normal <0.01 [facility] Comment on above: Performed By: #### C BC, CMP, LIPNF, TSH ####[facility] [place] [phone] Erythrocyte distribution width Auto Ratio (RBC) 12.6 % Normal 11.5-15.0 [facility] Comment on above: Performed By: #### C BC, CMP, LIPNF, TSH ####[facility] [place] [phone] Hematocrit Auto Volume Fraction (Bld) 49.0 % Normal 39.0-51.0 [facility] Comment on above: Performed By: #### C BC, CMP, LIPNF, TSH ####[facility] [place] [phone] Hemoglobin mass conc (Bld) 15.7 g/dL Normal 13.0-17.0 [facility] Comment on above: Performed By: #### C BC, CMP, LIPNF, TSH ####[facility] [place] [phone] MCH Auto Entitic mass (RBC) 27.6 pG Normal 26.0-34.0 [facility] Comment on above: Performed By: #### C BC, CMP, LIPNF, TSH ####[facility] [place] [phone] MCHC Auto mass conc (RBC) 32.0 g/dL Normal 30.5-36.0 [facility] Comment on above: Performed By: #### C BC, CMP, LIPNF, TSH ####[facility] [place] [phone] MCV Auto Entitic volume (RBC) 86.1 fL Normal 80.0-100.0 [facility] Comment on above: Performed By: #### C BC, CMP, LIPNF, TSH ####[place] [address] [address], [place] [phone] Platelet mean volume Auto Entitic volume (Bld) 9.9 fL Normal 9.0-12.7 [facility] Comment on above: Performed By: #### C BC, CMP, LIPNF, TSH ####[address], [place] [phone] Platelets Auto #/vol (Bld) 200 10*3/uL Normal 150-400 [facility] Comment on above: Performed By: #### C BC, CMP, LIPNF, TSH ####[address] [place] [phone] RBC Auto #/vol (Bld) 5.69 10*6/uL Normal 4.20-6.00 [facility] Comment on above: Performed By: #### C BC, CMP, LIPNF, TSH ####[place] [phone] WBC Auto #/vol (Bld) 6.49 10*3/uL Normal 3.70-11.00 [facility] Comment on above: Performed By: #### C BC, CMP, LIPNF, TSH ####[address], [place] [phone] NAMOVannabelle 02-23-2018 CNOV Office Visit (FAMPWS) ----SHIRLEY CONTI ([id number]) 1975 MDate Time Provider [id number]/27/18 3:00 PM JEANETH FRANCISCO) CAPWS During your visit today, we recorded the following information about you: Temperature Pulse Respiration Blood pressure 98.1 degrees 84/minute 16/minute 112/88 Weight Height 108 kg 1.803 Shahbaz Francisco MD 02/23/2018 5:41 PM SignedChief ComplaintPatient presents with:Establish CareHPIDavidaniel Welch Sushila is a 42 year old male who [facility]. Has not had PCP since he was a child and about 6 months ago he hadDOT physical and was found to have trace amounts of protein in his urine.Needed appointment for follow up.Seen yesterday in [facility] care for viral URI for previous 5 days. Advisedsupportive care, good hand washing, pushing PO fluids and given tessalon forcough. Mentions that he has been having heart palpitations which started lastnight. Described as a pause and then single hard heartbeat and then correctsitself. Occurred several times per minutes last night for a few hours until hefell asleep. Has not had any repeat symptoms since. Attributes this to lack ofsleep due to viral URI. Denies chest pain or SOB with palpitations.Obesity: does not exercise regularly and does not follow healthy diet. Eatsmostly meat and potatoes in large portions. Discussed weight loss and risks ofobesity.Patient thinks he had tet[facility] 6 years ago [facility] [place]. Refusing influenza vaccine.Past medical history, appointments, medications, allergies reviewed.Previous Medical HistoryPAST MEDICAL HISTORYDiagnosis Date- Obesity (BMI 30.0-34.9)Previous Surgical HistoryPAST SURGICAL HISTORYProcedure Laterality Date- NONEFamily HistoryFAMILY HISTORYProblem Relation Age of Onset- Diabetes Mother- Coronary Artery Disease Father 64 CABG x2- No Known Problems Sister- No Known Problems Brother- No Known Problems Maternal Grandmother- Coronary Artery Disease Maternal Grandfather 63 CO- No Known Problems Brother- No Known Problems Sister- No Known Problems Sister- No Known Problems Sister- No Known Problems Sister- No Known Problems Sister- No Known Problems SisterPatient AllergiesALLERGIESNo Known AllergiesCurrent MedicationsCurrent Outpatient Prescriptions on File Prior to Visit:benzonatate (TESSALON PERLES) 100 mg capsule Take 2 capsules by mouth threetimes daily as needed.No current facility-administered medications on file prior to visit.Social HistorySocial History Marital status: Spouse name: Years of education: Number of children:Social History Main Topics Smoking status: Former Smoker Packs/day: 1.00 Years: 15.00 Types: Cigarettes Quit date: 02/23/2006 Smokeless tobacco: Never Used Alcohol use: Yes Comment: socially Drug use: No Sexual activity: Yes Partners with: FemaleReview of SymptomsREVIEW OF SYSTEMSGENERAL: No weight loss, malaise or feversNECK: Negative for lumps, goiter, pain and significant neck swellingRESPIRATORY: Negative for cough, hemoptysis, wheezing, COPD, dyspnea orshortness of breathCARDIOVASCULAR: See HPIGI: No nausea, vomiting, or diarrheaSKIN: Negative for lesions, rash, and itchingEXAM:BP 112/88 Pulse 84 Temp 36.7 ?C (98.1 ?F) (Tympanic) Resp 16 Ht180.3 cm (5' 11) Wt 108 kg (238 lb) BMI 33.19 kg/m?General Appearance: Well appearing, alert, in no acute distress, well-hydrated,well nourished..Skin: Skin color, texture, turgor normal, no suspicious rashes or lesions.Head: Normocephalic, no masses, lesions, tenderness or abnormalities.Eyes: Anicteric sclera. Pupils are equally round and reactive to light.Extraocular movements are intact. .Ears: External ears normal, canals clear.Oropharynx: Lips, mucosa, and tongue normal, teeth and gums normal, oropharynxnormal.Neck: Supple, no adenopathy; thyroid symmetric, normal size, no bruits.Lungs: lungs clear to auscultation. No wheezing, rhonchi, rales.Heart: RRR without murmur, gallop, or rubs. No ectopy.Abdomen: Normal abdominal exam, Abdomen soft, non-tender. Bowel sounds normal.No masses, organomegaly.Extremities: No deformities, edema, skin discoloration, clubbing or cyanosis.Good capillary refill. .Health Maintenance ListDTAP,TDAP,TD(1 - Tdap) due on 1993LIPID SCREEN due on 2009INFLUENZA(1) due on 11/28/2017EKG: NSR at 90 bpmASSESSMENT/PLAN:1. General medical exam - ICD9: V70.9, ICD10: Z00.00 (primary diagnosis)- Recommended regular aerobic exercise.- Discussed need and benefit for weight loss. BMI 33.19 kg/(m2)- Check CBC with diff, CMP, TSH and fasting lipid panel- Electrocardiogram: An ECG today showed normal sinus rhythm at 90 BPM,- Vaccination(s) recommended today: Influenza- Follow up for annual exam in one year.2. Proteinuria, unspecified type - ICD9: 791.0, ICD10: R80.9Repeat UA.- URINALYSIS WITH MICROSCOPIC3. Obesity, Class I, BMI 30-34.9 - ICD9: 278.00, ICD10: E66.9See #14. Heart palpitations - ICD9: 785.1, ICD10: R00.2Negative EKG. Likely 2/2 lack of sleep. Obtain labs as ordered. To call ifsymptoms recur. Discussed avoidance of stimulants.- COMP METABOLIC PANEL- LIPID PANEL, NONFASTING- ECG COMPLETE W INTERPRETATION- CBC- TSH BLDChrJERILYN Alaseferreva Provider: SELF [200]Allergies As of Date: 02/23/2018(No Known Allergies)Date Reviewed: 02/23/2018Reviewed by: Jeaneth Francisco - Fully AssessedReason for Visit: [facility] [42]Primary Visit Diagnosis:General medical exam [Z00.00] Other Visit Diagnoses:Proteinuria, unspecified type [R80.9] Obesity, Class I, BMI 30-34.9 [E66.9] Heart palpitations [R00.2]Order(s):COMP METABOLIC PANEL [SQCMP] Order #: [id number] FUTURE LIPID PANEL, NONFASTING [SQLIPNF] Order #: [id number] FUTURE ECG COMPLETE W INTERPRETATION [ECG01] Order #: [id number] FUTURE CBC [SQCBC] Order #: [id number] FUTURE TSH BLD [SQTSH] Order #: [id number] FUTURE URINALYSIS WITH MICROSCOPIC [SQUAWMIC] Order #: [id number]. #:[id number] ns as of 02/23/2018 Sig: BENZONATATE 100 MG CAPSULE Take 2 capsules by mouth thre*Problem List As Of Date: 02/23/2018(None)Disposition: Return in about 1 year (around 02/23/2019).Follow-up and Disposition History RecordedEncounter Number: [id number] Status:Closed by JEANETH FRANCISCO MD on 02/23/18 Normal [facility] Comp Metabolic Panelon 02-23 Albumin mass conc 4.5 g/dL Normal 3.9-4.9 [facility] Comment on above: Performed By: #### C BC, CMP, LIPNF, TSH ####[facility] [place], [place] [phone] ALP enzyme act/vol 65 U/L Normal 38-113 [facility] Comment on above: Performed By: #### C BC, CMP, LIPNF, TSH ####[facility] [place], [place] [phone] ALT enzyme act/vol 41 U/L Normal 10-54 [facility] Comment on above: Performed By: #### C BC, CMP, LIPNF, TSH ####[facility] [place] [phone] Anion gap 3 molar conc 15 mmol/L Normal 9-18 [facility] Comment on above: Performed By: #### C BC, CMP, LIPNF, TSH ####[facility] [place] [phone] AST enzyme act/vol 29 U/L Normal 14-40 [facility] Comment on above: Performed By: #### C BC, CMP, LIPNF, TSH ####[facility] [phone] Bilirubin mass conc 0.4 mg/dL Normal 0.2-1.3 [facility] Comment on above: Performed By: #### C BC, CMP, LIPNF, TSH ####[facility] [phone] Calcium mass conc 9.2 mg/dL Normal 8.5-10.2 [facility] Comment on above: Performed By: #### C BC, CMP, LIPNF, TSH ####[place] [address] [address] [phone] Chloride molar conc 100 mmol/L Normal 97-105 [facility] Comment on above: Performed By: #### C BC, CMP, LIPNF, TSH ####[place] [address] [address] [phone] CO2 molar conc 24 mmol/L Normal 22-30 [facility] Comment on above: Performed By: #### C BC, CMP, LIPNF, TSH ####[place] [address] [phone] Creatinine mass conc 0.94 mg/dL Normal 0.73-1.22 [facility] Comment on above: Performed By: #### C BC, CMP, LIPNF, TSH ####[place] [address] [phone] eGFR- Amer. >60 Normal [facility] Comment on above: Performed By: #### C BC, CMP, LIPNF, TSH ####[place] [address] [phone] GFR/1.73 sq M predicted among non-blacks MDRD vol rate/area (S/P/Bld) mL/min/{1.73_m2} Normal [facility] Comment on above: Result Comment: eGFR (Estimated GFR) Units of measure: mL/min/1.73 meters squaredeGFR is derived from the reexpressed MDRD Study equation using the following parameters: serum creatinine, age, gender and race. The creatinine assay has been calibrated to be traceable to IDMS.An eGFR <60 mL/min/1.73m2 for >3 months is consistent with chronic kidney disease. Refer to KDOQI guidelines for clinical interpretation.In patients with unstable renal function, e.g. those with acute kidney injury, the eGFR may not accurately reflect actual GFR. Performed By: #### C BC, CMP, LIPNF, TSH ####[facility] [place], [place] [phone] Glucose mass conc 92 mg/dL Normal 74-99 [facility] Comment on above: Result Comment: The [place] Diabetes Association (ADA) provides guidance for cutoff values for fasting glucose and random glucose. The ADA defines fasting as no caloric intake for at least 8 hours. Fasting plasma glucose results between 100 to 125 mg/dL indicate increased risk for diabetes (prediabetes).Fasting plasma glucose results greater than or equal to 126 mg/dL meet the criteria for diagnosis of diabetes. In the absence of unequivocal hyperglycemia, results should be confirmed by repeat testing. In a patient with classic symptoms of hyperglycemia or hyperglycemic crisis, random plasma glucose results greater than or equal to 200 mg/dL meet the criteria for diagnosis of diabetes.Reference: Standards of Medical Care in Diabetes 2016, [place] Diabetes Association. Diabetes Care. 2016.39(Suppl 1). Performed By: #### C BC, CMP, LIPNF, TSH ####[facility] [place], [place] [phone] Potassium molar conc 4.2 mmol/L Normal 3.7-5.1 [facility] Comment on above: Performed By: #### C BC, CMP, LIPNF, TSH ####[facility] [address] [place], [place] [phone] Protein mass conc 7.6 g/dL Normal 6.3-8.0 [facility] Comment on above: Performed By: #### C BC, CMP, LIPNF, TSH ####[facility] [address] [place], [place] [phone] Sodium molar conc 139 mmol/L Normal 136-144 [facility] Comment on above: Performed By: #### C BC, CMP, LIPNF, TSH ####[facility], [place] [phone] Urea nitrogen mass conc 14 mg/dL Normal 9-24 [facility] Comment on above: Performed By: #### C BC, CMP, LIPNF, TSH ####[facility] [place], [place] [phone] ECG COMPLETE W INTERPRETATIO Non 02-23-2018 Protein mass conc NAME : EVELIA CONTI DPID : [id number] : 1975 Gender : MaleRace : CaucasianORD : [id number] Procedure Date : Feb 23 2018 15:47:51Edit Date : Feb 24 2018 16:38:32 Diagnosis:NORMAL SINUS RHYTHMNORMAL ECGConfirmed by SIM MARIN D.O. ([id number]) on 02/24/2018 4:38:24 PM Ventricular Rate : 90 BPMAtrial Rate : 90 BPMP-R Interval : 144 msQRS Duration : 94 msQ-T Interval : 356 msQTC Calculation(Bezet) : 435 msP [place] : 52 degreesR [place] : 23 degreesT [place] : 21 degrees Test Reason : Location : 185 : [facility] Overread By : SIM MARIN D.O.Edited By : SIM MARIN D.O.Referred By : Valentin FRANCISCOquired by : TL, Normal [facility] Lipid Panel, Nonfaston 02-23 Cholesterol in LDL/Cholesterol in HDL mass ratio 2.10 mg/dL Normal <2.54 [facility] Comment on above: Result Comment: Refe rence:1. National Cholesterol Education Program ATP III Guideline At-A-Glance Quick Desk Reference: National Heart, Lung, and Blood [place]. National Institutes of Health. 2001: NIH Publication No. 01-3305.2. An International Atherosclerosis Society position paper: global recommendations for the management of dyslipidemia: executive summary, Atherosclerosis. 2014: 232(2):410-413. Performed By: #### C BC, CMP, LIPNF, TSH ####[facility] [place], [place] [phone] Cholesterol mass conc 142 mg/dL Normal <200 [facility] Comment on above: Result Comment: <200 mg/dL, Desirable 200-239 mg/dL, Borderline high>239 mg/dL, High Performed By: #### C BC, CMP, LIPNF, TSH ####[facility], [place] [phone] Cholesterol.total/ Cholesterol in HDL mass ratio 3.38 mg/dL Normal <5.10 [facility] Comment on above: Performed By: #### C BC, CMP, LIPNF, TSH ####[place] [address], [place] [phone] HDL Cholesterol, NF 42 mg/dL Normal >39 [facility] Comment on above: Result Comment: 40-5 9 mg/dL, Acceptable>59 mg/dL, High: Negative risk factor for coronary heart disease<40 mg/dL, Low: Positive risk factor for coronary heart disease Performed By: #### C BC, CMP, LIPNF, TSH ####[place] [address], [place] [phone] LDL Cholesterol, NF 88 mg/dL Normal <100 [facility] Comment on above: Result Comment: <100 mg/dL, Optimal 100-129 mg/dL, Near optimal/above optimal 130-159 mg/dL, Borderline high 160-189 mg/dL, High>189 mg/dL, Very highSecondary prevention optimal LDL Cholesterol levels are recommended to be < 70 mg/dL Performed By: #### C BC, CMP, LIPNF, TSH ####[facility], [place] [phone] Non HDL Chol, NF 100 mg/dL Normal <130 [facility] Comment on above: Result Comment: <130 mg/dL, Optimal 130-159 mg/dL, Near optimal/above optimal 160-189 mg/dL, Borderline high 190-219 mg/dL, High>219 mg/dL, Very highSecondary prevention optimal non HDL Cholesterol levels are recommended to be < 100 mg/dL Performed By: #### C BC, CMP, LIPNF, TSH ####[facility] [place], [place] [phone] Triglycerides, NF 60 mg/dL Normal <150 [facility] Comment on above: Result Comment: <150 mg/dL, Normal 150-199 mg/dL, Borderline high 200-499 mg/dL, High>499 mg/dL, Very high Performed By: #### C BC, CMP, LIPNF, TSH ####[facility] [place], [place] [phone] VLDL Cholesterol, NF 12 mg/dL Normal <30 [facility] Comment on above: Performed By: #### C BC, CMP, LIPNF, TSH ####[place] [address] [place], [place] [phone] PROGRESSon 02-23-2018 Protein mass conc HNO ID: [id number] thor: Jeaneth Barnes) Baljeet: (none)Author Type: PhysicianType: Progress NotesFiled: 02/23/2018 5:41 PMNote Text:Chief ComplaintPatient presents with:Shiva Pandya Rebekah Conti is a 42 year old male who presents here today [facility]. 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 Needed appointment for follow up.Seen yesterday in [facility] for viral URI for previous 5 days. Advisedsupportive care, good hand washing, pushing PO fluids and given tessalonfor cough. Mentions that he has been having heart palpitations whichstarted last night. Described as a pause and then single hard heartbeatand then corrects itself. Occurred several times per minutes last nightfor a few hours until he fell asleep. Has not had any repeat symptomssince. Attributes this to lack of sleep due to viral URI. Denies chestpain or SOB with palpitations.Obesity: does not exercise regularly and does not follow healthy diet.Eats mostly meat and potatoes in large portions. Discussed weight loss andrisks of obesity.Patient thinks he had tetanus shot 6 years ago at [facility] in [facility] after laceration to finger. Refusing influenza vaccine.Past medical history, appointments, medications, allergies reviewed.Previous Medical HistoryPAST MEDICAL HISTORYDiagnosis Date- Obesity (BMI 30.0-34.9)Previous Surgical HistoryPAST SURGICAL HISTORYProcedure Laterality Date- NONEFamily HistoryFAMILY HISTORYProblem Relation Age of Onset- Diabetes Mother- Coronary Artery Disease Father 64 CABG x2- No Known Problems Sister- No Known Problems Brother- No Known Problems Maternal Grandmother- Coronary Artery Disease Maternal Grandfather 63 CO- No Known Problems Brother- No Known Problems Sister- No Known Problems Sister- No Known Problems Sister- No Known Problems Sister- No Known Problems Sister- No Known Problems SisterPatient AllergiesALLERGIESNo Known AllergiesCurrent MedicationsCurrent Outpatient Prescriptions on File Prior to Visit:benzonatate (TESSALON PERLES) 100 mg capsule Take 2 capsules by mouththree times daily as needed.No current facility-administered medications on file prior to visit.Social HistorySocial History Marital status: Spouse name: Years of education: Number of children:Social History Main Topics Smoking status: Former Smoker Packs/day: 1.00 Years: 15.00 Types: Cigarettes Quit date: 02/23/2006 Smokeless tobacco: Never Used Alcohol use: Yes Comment: socially Drug use: No Sexual activity: Yes Partners with: FemaleReview of SymptomsREVIEW OF SYSTEMSGENERAL: No weight loss, malaise or feversNECK: Negative for lumps, goiter, pain and significant neck swellingRESPIRATORY: Negative for cough, hemoptysis, wheezing, COPD, dyspnea orshortness of breathCARDIOVASCULAR: See HPIGI: No nausea, vomiting, or diarrheaSKIN: Negative for lesions, rash, and itchingEXAM:BP 112/88 Pulse 84 Temp 36.7 ?C (98.1 ?F) (Tympanic) Resp 16 Ht 180.3 cm (5' 11) Wt 108 kg (238 lb) BMI 33.19 kg/m?General Appearance: Well appearing, alert, in no acute distress,well-hydrated, well nourished..Skin: Skin color, texture, turgor normal, no suspicious rashes or lesions.Head: Normocephalic, no masses, lesions, tenderness or abnormalities.Eyes: Anicteric sclera. Pupils are equally round and reactive to light.Extraocular movements are intact. .Ears: External ears normal, canals clear.Oropharynx: Lips, mucosa, and tongue normal, teeth and gums normal,oropharynx normal.Neck: Supple, no adenopathy; thyroid symmetric, normal size, no bruits.Lungs: lungs clear to auscultation. No wheezing, rhonchi, rales.Heart: RRR without murmur, gallop, or rubs. No ectopy.Abdomen: Normal abdominal exam, Abdomen soft, non-tender. Bowel soundsnormal. No masses, organomegaly.Extremities: No deformities, edema, skin discoloration, clubbing orcyanosis. Good capillary refill. .Health Maintenance ListDTAP,TDAP,TD(1 - Tdap) due on 1993LIPID SCREEN due on 2009INFLUENZA(1) due on 11/28/2017EKG: NSR at 90 bpmASSESSMENT/PLAN:1. General medical exam - ICD9: V70.9, ICD10: Z00.00 (primary diagnosis)- Recommended regular aerobic exercise.- Discussed need and benefit for weight loss. BMI 33.19 kg/(m2)- Check CBC with diff, CMP, TSH and fasting lipid panel- Electrocardiogram: An ECG today showed normal sinus rhythm at 90 BPM,- Vaccination(s) recommended today: Influenza- Follow up for annual exam in one year.2. Proteinuria, unspecified type - ICD9: 791.0, ICD10: R80.9Repeat UA.- URINALYSIS WITH MICROSCOPIC3. Obesity, Class I, BMI 30-34.9 - ICD9: 278.00, ICD10: E66.9See #14. Heart palpitations - ICD9: 785.1, ICD10: R00.2Negative EKG. Likely 2/2 lack of sleep. Obtain labs as ordered. To call ifsymptoms recur. Discussed avoidance of stimulants.- COMP METABOLIC PANEL- LIPID PANEL, NONFASTING- ECG COMPLETE W INTERPRETATION- CBC- TSH BLMYKEhrjanny Francisco MD Normal [facility] TSHon 02-23-2018 Thyrotropin Qn 1.890 uU/mL Normal 0.400-5.500 Nolan sanchez [facility] Comment on above: Performed By: #### C BC, CMP, LIPNF, TSH ####[facility] [address] [place] [phone] Urinalysis with Microscopico n 02-23-2018 Bilirubin, Urine Negative Normal Negative [facility] Comment on above: Performed By: #### U AWMIC ####[facility] [place] [phone] Clarity Clear Normal Clear [facility] Comment on above: Performed By: #### U AWMIC ####[place] [address] [place] [phone] Color Yellow Normal Yellow [facility] Comment on above: Performed By: #### U AWMIC ####[place] [address] [place] [phone] Comments SEE COMMENT Normal [facility] Comment on above: Result Comment: N/A Performed By: #### U AWMIC ####[place] [address] [place] [phone] Glucose Ql (U) Negative Normal Negative [facility] Comment on above: Performed By: #### U AWMIC ####[place] [address] [place] [phone] Hemoglobin/Blood,U r Negative Normal Negative [facility] Comment on above: Performed By: #### U AWMIC ####[place] [address] [place] [phone] INR Coag RelTime (Bld) 0-3 Normal 0-3 [facility] Comment on above: Performed By: #### U AWMIC ####[place] [address] [place] [phone] Ketones Ql (U) 1+ Critically abnormal Negative [facility] Comment on above: Performed By: #### U AWMIC ####[place] [address] [place] [phone] Leukest Negative Normal Negative [facility] Comment on above: Performed By: #### U AWMIC ####[place] [address], [place] [phone] Nitrites Negative Normal Negative [facility] Comment on above: Performed By: #### U AWMIC ####[facility], [place] [phone] pH 6.0 Normal 4.5-8.0 [facility] Comment on above: Performed By: #### U AWMIC ####[place] [address], [place] [phone] Protein, Urine 30 mg/dL Critically abnormal Negative [facility] Comment on above: Performed By: #### U AWMIC ####[place] [address], [place] [phone] Specific [place], Ur 1.025 Normal 1.005-1.030 [facility] Comment on above: Performed By: #### U AWMIC ####[facility], [place] [phone] Urine David Comment SEE COMMENT Normal [facility] Comment on above: Result Comment: N/A Performed By: #### U AWMIC ####[place] [address], [place] [phone] Urobilinogen Normal Normal Normal [facility] Comment on above: Performed By: #### U AWMIC ####[facility] [address], [place] [phone] WBC 0-5 Normal 0-5 [facility] Comment on above: Performed By: #### U AWMIC ####[facility], [place] [phone] Saravanan 02-22-2018 CNOV Office Visit ([facility]) ----SHIRLEY CONTI ([id number]) 1975 MDate Time Provider Esnrohjlex59/26/18 10:30 AM APARNA KRUEGER) [facility] During your visit today, we recorded the following information about you: Temperature Pulse Respiration Blood pressure 98.1 degrees 98/minute 16/minute 130/86 Weight 109.3 kgAparna Krueger PA-C 02/22/2018 12:44 PM SignedSubjectiveHPIPatient presents with cough congestion sore throat for the past 5 days. Hestates he felt pretty bad last night however when he left this morning isfeeling much improved. His sore throat has improved. He felt feverish lastnight but no fevers today. No vomiting or diarrhea. He is a former smoker butquit several years ago. He denies any history of asthma or COPD. No othersick contacts. No chest pain or shortness of breath.Review of SystemsConstitutional: Positive for chills, fever and malaise/fatigue.HENT: Positive for congestion and sore throat. Negative for ear pain.Eyes: Negative.Respiratory: Positive for cough. Negative for sputum production, shortness ofbreath and wheezing.Cardiovascular: Negative.Skin: Negative.All other systems reviewed and are negative.No past medical history on file.Current Outpatient Prescriptions:benzonatate (TESSALON PERLES) 100 mg capsule Take 2 capsules by mouth threetimes daily as needed. Disp: 30 capsule Rfl: 0No current facility-administered medications for this visit.No past surgical history on file.No family history on file.Social HistorySubstance Use Topics- Smoking status: Former Smoker- Smokeless tobacco: Never Used- Alcohol use Not on fileBP 130/86 Pulse 98 Temp 36.7 ?C (98.1 ?F) (Tympanic) Resp 16 Wt109.3 kg (241 lb) SpO2 99%ObjectivePhysical ExamConstitutional: He is oriented to person, place, and time and well-developed,well-nourishe d, and in no distress.HENT:Head: Normocephalic and atraumatic.Right Ear: Tympanic membrane, external ear and ear canal normal.Left Ear: Tympanic membrane, external ear and ear canal normal.Nose: Mucosal edema and rhinorrhea present.Mouth/Throat: Uvula is midline and mucous membranes are normal. Posteriororopharyngeal erythema present. No oropharyngeal exudate, posteriororopharyngeal edema or tonsillar abscesses.Neck: Normal range of motion. Neck supple.Cardiovascular: Normal rate, regular rhythm and normal heart sounds.Pulmonary/Chest: Effort normal and breath sounds normal.Lymphadenopathy: He has no cervical adenopathy.Neurological: He is alert and oriented to person, place, and time.Skin: Skin is warm and dry. No rash noted.Psychiatric: Affect and judgment normal.Nursing note and vitals reviewed. ASSESSMENT/PLAN:1. Viral URI with cough - ICD9: 465.9, ICD10: J06.9, B97.89- Discussed viral etiology and rationale for treatment.- Symptomatic treatment with prn analgesia- Supportive care with fluids and rest- Follow up in one week if symptoms persist or sooner if worsening of symptomsHERMAN Toro-CReferring Provider: SELF [200]Allergies As of Date: 02/22/2018(No Known Allergies)Date Reviewed: 02/22/2018Reviewed by: Giulia Espinoza LPN - Fully AssessedReason for Visit: cough, congestion, fever and ST [Other] Cmt: x 5 daysPrimary Visit Diagnosis:Viral URI with cough [J06.9, B97.89]Order(s):benzonatate (TESSALON PERLES) 100 mg capsuleTake 2 capsules by mouth three times daily as needed.Disp: 30 capsuleRfl: 0Prescriptions as of 02/22/2018 Sig: BENZONATATE 100 MG CAPSULE Take 2 capsules by mouth thre*Problem List As Of Date: 02/22/2018(None)Prescription s ordered this encounter Disp Refills Start End BENZONATATE 100 MG CAPSULE 30 c* 0 02/22/2018 Route: ORAL Sig: Take 2 capsules by mouth three times daily as needed. Status:Closed by APARNA KRUEGER PA-C on 02/22/18 [facility] PROGRESSon 02-22-2018 Protein mass conc HNO ID: [id number] thor: Aparna Prado) AthyService: (none)Author Type: Physician AssistantType: Progress NotesFiled: 02/22/2018 12:44 PMNote Text:SubjectiveHPIPatient presents with cough congestion sore throat for the past 5 days.He states he felt pretty bad last night however when he left this morningis feeling much improved. His sore throat has improved. He felt feverishlast night but no fevers today. No vomiting or diarrhea. He is a formersmoker but quit several years ago. He denies any history of asthma orCOPD. No other sick contacts. No chest pain or shortness of breath.Review of SystemsConstitutional: Positive for chills, fever and malaise/fatigue.HENT: Positive for congestion and sore throat. Negative for ear pain.Eyes: Negative.Respiratory: Positive for cough. Negative for sputum production, shortnessof breath and wheezing.Cardiovascular: Negative.Skin: Negative.All other systems reviewed and are negative.No past medical history on file.Current Outpatient Prescriptions:benzonatate (TESSALON PERLES) 100 mg capsule Take 2 capsules by mouththree times daily as needed. Disp: 30 capsule Rfl: 0No current facility-administered medications for this visit.No past surgical history on file.No family history on file.Social HistorySubstance Use Topics- Smoking status: Former Smoker- Smokeless tobacco: Never Used- Alcohol use Not on fileBP 130/86 Pulse 98 Temp 36.7 ?C (98.1 ?F) (Tympanic) Resp 16 Wt 109.3 kg (241 lb) SpO2 99%ObjectivePhysical ExamConstitutional: He is oriented to person, place, and time andwell-developed, well-nourished, and in no distress.HENT:Head: Normocephalic and atraumatic.Right Ear: Tympanic membrane, external ear and ear canal normal.Left Ear: Tympanic membrane, external ear and ear canal normal.Nose: Mucosal edema and rhinorrhea present.Mouth/Throat: Uvula is midline and mucous membranes are normal. Posteriororopharyngeal erythema present. No oropharyngeal exudate, posteriororopharyngeal edema or tonsillar abscesses.Neck: Normal range of motion. Neck supple.Cardiovascular: Normal rate, regular rhythm and normal heart sounds.Pulmonary/Chest: Effort normal and breath sounds normal.Lymphadenopathy: He has no cervical adenopathy.Neurological: He is alert and oriented to person, place, and time.Skin: Skin is warm and dry. No rash noted.Psychiatric: Affect and judgment normal.Nursing note and vitals reviewed. ASSESSMENT/PLAN:1. Viral URI with cough - ICD9: 465.9, ICD10: J06.9, B97.89- Discussed viral etiology and rationale for treatment.- Symptomatic treatment with prn analgesia- Supportive care with fluids and rest- Follow up in one week if symptoms persist or sooner if worsening ofsymptomsCara Kaylee Krueger PA-C Normal [facility] Vital Signs Date Time Vital Sign Value Performing Clinician Jodi wong 08-10-2024 15:15-0400 Body height 182.88 cm No Primary Care Physician [facility] 08-10-2024 15:15-0400 Body mass index (BMI) [Ratio] 28.3 kg/m2 No Primary Care Physician [facility] 08-10-2024 15:15-0400 Body temperature 98.5 [degF] No Primary Care Physician [facility] 08-10-2024 15:15-0400 Body weight 94.8 kg No Primary Care Physician [facility] 08-10-2024 15:15-0400 Diastolic blood pressure 83 mm[Hg] No Primary Care Physician [facility] 08-10-2024 15:15-0400 Heart rate 70 /min No Primary Care Physician [facility] 08-10-2024 15:15-0400 SaO2% (BldA) [Mass fraction] 97 % No Primary Care Physician [facility] 08-10-2024 15:15-0400 Systolic blood pressure 122 mm[Hg] No Primary Care Physician [facility] Encounters Encounter Date Encounter Type Care Provider Facility Start: 11-14-2024 ambulatory No Primary Car e Physician Facility:[facility] Start: 10-28-2024 ambulatory No Primary Car e Physician Facility:[facility] Start: 08-10-2024 End: 08-10-2024 [facility] Start: 08-10-2024 End: 08-10-2024 ambulatory No Primary Care Physician [facility] Work Phone: Start: 12-18-2020 ambulatory [facility] Start: 10-26-2020 End: 12-11-2020 ambulatory LUCINDA [facility] Start: 03-05-2018 End: 03-05-2018 [facility] Start: 02-23-2018 End: 02-24-2018 [facility] Start: 02-22-2018 End: 02-24-2018 Patient encounter procedure JEANETH FRANCISCO [facility] Immunizations Immunization Date Immunization Notes Care Provider Louis mccartney 08-10-2024 tetanus toxoid, redu bin diphtheria toxoid, and acellular pertussis vaccine, adsorbed No Primary Care Physician [facility] Payers Date Payer Category Payer Self-pay 2024 Unknown [id number] 1975 Unknown [id number] 1975 Unknown [id number] Private Health Insurance [id number] Unknown [id number] Unknown [id number] Unknown [facility] [id number] Unknown [id number] [id number] [id number] Unknown [id number] [id number] Unknown [id number] Social History Date Type Detail Facility Start: [facility] Start: 1975 Sex Assigned At Male [facility] Evaluation note Note Date & Type Note Facility Evaluation note No assessment information availa ble [facility] Work Phone: Reason for referral (narrative) Note Date & Type Note Facility Reason for referral (narrative) No reason for referral information available [facility] Work Phone: Summary Purpose Family History No Family History Records Found Relationship Condition Age at Onset Recorded Date/T azul father Cardiac disease Unknown mother Diabetes mellitus Unknown Advance Directives No Advanced Directives Records FoundNo Advanced Directives Records FoundNo Advanced Directives Records FoundNo Advanced Directives Records FoundNo Advanced Directives Records Found Chief Complaint and Reason for Visit Chief Complaint Admit Date RT [facility]AC August 10, 2024 3:10p m Additional Source Comments (unrecognized sect ion and content) No Status Records FoundNo Status Records FoundNo Status Records FoundNo Status Records FoundNo Status Records Found INFORMATION SOURCE (unrecogn ized section and content) DATE CREATED AUTHOR 03/09/2018 [facility] DATE CREATED AUTHOR AUTHOR'S ORGANIZ ATION 09/30/2020 [facility] DATE CREATED AUTHOR AUTHOR'S ORGANIZ ATION 11/02/2020 [facility] ([place] DATE CREATED AUTHOR AUTHOR'S ORGANIZ ATION 12/19/2020 [facility] DATE CREATED AUTHOR AUTHOR'S ORGANIZ ATION 11/13/2024 [facility] Care Teams (unrecognized sec tion and content) Team Status: Active Member Role Status Dates No Primary Care Physician Primary Care Provider Active Team Status: Inactive Member Role Status Dates No Primary Care Physician Primary Care Provider Active Start: August 10, 2024 End: August 10, 2024 No Primary Care Physician Referring Provider Active Start: August 10, 2024 End: August 10, 2024 HERMAN Josih Attending Provider Active Sta rt: August 10, 2024 End: August 10, 2024 Goals (unrecognized section and content) Goals may be documented in a n alternate section FOR RECORDS PERTAINING TO PATIENTS WHO ARE OR HAVE BEEN ENROLLED IN A CHEMICAL DEPENDENCY/SUBSTANCEABUSE PROGRAM, SOME INFORMATION MAY BE OMITTED. This clinical summary was aggregated from multiple sources. Caution should be exercised in using it in the provision of clinical care. This summary normalizes information from multiple sources, and as a consequence, information in this document may materially change the coding, format and clinical context of patient data. In addition, data may be omitted in some cases. CLINICAL DECISIONS SHOULD BE BASED ON THE PRIMARY CLINICAL RECORDS. [facility] [employer] [facility]. provides no warranty or guarantee of the accuracy or completeness of information in this document.
== END | disposition home or self-care (01) ==
LOC: CT 06:22
PROVIDERS: Referring Provider Otolaryngology; Visit Provider Otolaryngology
DX: J32.8 Other chronic sinusitis (principal)
CPT/HCPCS: 70486